=== PATIENT | male | born 1975 | race Two or more races ===

== ENCOUNTER 2019-04-29 14:29 | Emergency (ER) | payer MEDICAID ==
[~2019-04-29] VITALS: Ht 162.6 cm; Wt 59.1 kg
[2019-04-29 14:39] VITALS: BP 129/73
--- NOTE | 2019-04-29 14:50 | NUR ---
pt c/o Right arm pain, per pt's family "the way he gets around is by crawling, he thinks he tore a muscle". PMH: cerebral palsy. resps even and unlabored.
--- NOTE | 2019-04-29 15:24 | NUR ---
Patient and patient's family members given discharge instructions and they have confirmed that they understand the instructions.
== END 2019-04-29 15:29 | disposition home or self-care (01) ==
LOC: ED 15:00
DX: M77.9 Enthesopathy, unspecified (principal)
CPT/HCPCS: 99282